=== PATIENT | male | born 1980 | race Caucasian/White ===

== ENCOUNTER 2017-02-28 14:46 | Emergency (ER) | payer BC, SELFPAY ==
[~2017-02-28] VITALS: Ht 182.9 cm; Wt 106.8 kg
[2017-02-28] MEDS ORDERED: IBUP-1022 PO (17:13)
[2017-02-28] MEDS ORDERED: ROBA500T PO (17:13)
[2017-02-28] MEDS ORDERED: METHOCARBAMOL 500 MG TAB PO ONE (17:15)
[2017-02-28] MEDS ORDERED: IBUPROFEN 600 MG TAB PO ONE (17:15)
[2017-02-28 17:27] VITALS: BP 134/78
== END 2017-02-28 17:28 | disposition home or self-care (01) ==
LOC: M ED 14:46
DX: M54.12 Radiculopathy, cervical region (principal); F17.200 Nicotine dependence, unspecified, uncomplicated; Z88.0 Allergy status to penicillin